=== PATIENT | male | born 1940 | race African-American/Black ===

== ENCOUNTER 2018-04-07 06:44 | Observation (INO) | payer OTHER ==
[~2018-04-07] VITALS: Ht 190.5 cm; Wt 72.4 kg
--- NOTE | ~2018-04-07 | P ---
[facility] [place] [address] PROCEDURE REPORT Name: GELY PRINGLE Room #: 201-P [facility] M.R.#: [id number] Admission: 04/07/18 Attend Phys: Aneesh Prince MD Discharge: Date of : 42 Report #: [id number] THIS REPORT FOR: //name// CC: FRANCES COURTNEY FAM unknown Aneesh Prince PREOPERATIVE DIAGNOSIS: Nonischemic cardiomyopathy. POSTOPERATIVE DIAGNOSIS: Nonischemic cardiomyopathy. PROCEDURES PERFORMED: ICD implantation, CPT code 07672. HISTORY: The patient is a 77-year-old with a history of a nonischemic cardiomyopathy, [place] [employer] functional class 2-3 heart failure symptoms and an EF of less than 35%, who has been on optimal medical therapy for over 3 months and is here for ICD implantation for primary prevention of sudden cardiac . ANESTHESIA: The patient underwent MAC anesthesia, with no anesthesia-related complications. DESCRIPTION OF PROCEDURE: The patient underwent informed consent. We discussed the details of the procedure, including the risk, which include but not limited to bleeding, infection, vascular damage, cardiac perforation and pneumothorax. He understood these risks and is willing to proceed. The patient was brought to the EP laboratory in fasting and sedated state and prepped and draped in a sterile fashion. He underwent a venogram, showing patency of the left axillary vein and received Ancef for antibiotic prophylaxis. Next, I injected lidocaine below the level of left clavicle. Incision was made and a pocket was created over the prepectoral fascia and then access was obtained twice through the left axillary vein using the extrathoracic approach. A second venogram was required to localize the vein. Next, under fluoroscopy, lead was positioned into the right ventricle and right atrial appendage. Of note, I did have difficulty positioning the RV lead. It would continue to take a very posterior location. I had a difficult time getting it to the apex and I think that maybe his heart was very rotated. Therefore, I positioned the lead very anteriorly in an FUNES projection and the lead appeared to be along the mid anterior ventricular septum. There was adequate pacing and sensing thresholds. Atrial lead was positioned to the right atrial appendage with no issues. The leads were sutured to the prepectoral fascia and then connected to the device. The pocket was irrigated with vancomycin and then the pocket was closed in 2 layers using 2-0 for the deep layer and 3-0 for the middle layer. Surgical glue was placed to the outer skin [address] [id number] PROCEDURE REPORT Name: GELY PRINGLE Room #: 201-P [facility] M.R.#: [id number] Admission: 04/07/18 Attend Phys: Aneesh Prince MD Discharge: Date of : 42 Report #: [id number] layer. The patient awoke neurologically and hemodynamically intact. No complications and no significant bleeding. The implanted device is [employer] model # [id number], serial #[id number]. The atrial lead is a [employer] model #2088TC, 52 cm, serial # [id number] and the RV lead is a [employer] model #7122Q, 65 cm, serial # [id number]. The atrial lead demonstrated a P-wave of greater than 5 millivolts, pacing impedance of 400 ohms and a pacing threshold of 0.5 at 0.5 milliseconds. The RV lead demonstrated R-wave of 11.7 millivolts, pacing impedance of 440 ohms and pacing threshold 0.5 volts at 0.5 milliseconds. The device was programmed to DDDR 60-130 mode. The VT zone was set at 180-220 beats per minute with 3 rounds of bursts, followed by 3 rounds of ramp, followed by max output shocks. The VF zone was set at greater than 220 beats per minute with ATP while charging, followed by max output shocks. CONCLUSIONS: 1. Successful dual-chamber ICD implantation. 2. Satisfactory atrial and ventricular pacing and sensing thresholds. By: [id number] Aneesh Prince MD /nt
--- NOTE | ~2018-04-07 | D ---
[facility] [address] [place] [address] DISCHARGE SUMMARY Name: GELY PRINGLE Room #: 201-P [facility] M.R.#: [id number] Admission: 04/07/18 Attend Phys: Aneesh Prince MD Discharge: Date of : 42 Report #: [id number] THIS REPORT FOR: //name// CC: FAM unknown ROZ FRANCES Prince DISCHARGE DIAGNOSIS: Nonischemic cardiomyopathy. PROCEDURES PERFORMED: Dual chamber [employer] ICD implantation. HISTORY OF PRESENT ILLNESS: The patient is a 77-year-old with history of nonischemic cardiomyopathy, has been on optimal medical therapy and was here for ICD implantation for primary prevention of sudden cardiac . He underwent successful ICD implantation without any issues. HOSPITAL COURSE: The patient was monitored overnight, he did well. He denied any chest pain, shortness of breath, PND, orthopnea, presyncope or syncope. He denied fevers or chills. PHYSICAL EXAMINATION: HEART: Regular rate and rhythm. LUNGS: Clear to auscultation bilaterally. ABDOMEN: Soft, nontender. EXTREMITIES: No clubbing, cyanosis or edema. His incision was healing nicely with no bruising or hematoma. His telemetry revealed sinus rhythm. His device interrogation showed normal device function. His chest x-ray showed stable lead position with no pneumothorax. As such, he was deemed stable for discharge home. 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 By: [id number] Aneesh Prince MD /nt
[2018-04-07 07:15] VITALS: BP 145/79
[2018-04-07] MEDS ORDERED: NAMENDA 10 MG T10 MG PO (07:32)
[2018-04-07] MEDS ORDERED: LISINOPRIL10 MG PO (07:32)
[2018-04-07] MEDS ORDERED: HYDROCHLOROTH12.5 M1 PO (07:33)
[2018-04-07] MEDS ORDERED: TOPROL XL25 MG PO (07:33)
[2018-04-07] MEDS ORDERED: ZOCOR20 MG PO (07:33)
[2018-04-07] MEDS ORDERED: VITAMIN D2000 UNIT PO (07:34)
[2018-04-07] MEDS ORDERED: CARDURA4 MG PO (07:34)
[2018-04-07] MEDS ORDERED: ASPIR 8181 MG PO (07:35)
[2018-04-07 07:39] LABS: ABSOLUTE NEUTROPHILS 1.8 thou/uL (1.4-8.2); BASOPHILS 0.5 % (0.0-2.0); EOSINOPHILS 1.7 % (0.0-3.0); HEMATOCRIT 39.7 % (42.0-52.0); HEMOGLOBIN 13.2 gm/dL (14.0-18.0); LYMPHOCYTES 39.8 % (24.0-44.0); MCH 31.1 pg (26.0-34.0); MCHC 33.3 g/dL (28.0-37.0); MCV 93.5 fL (80.0-100.0); MONOCYTES 11.6 % (1.0-8.0); PLATELET COUNT 227 thou/uL (150-400); POLYS 46.4 % (36.0-66.0); RBC 4.25 mil/uL (4.50-6.00); RDW 14.1 % (10.5-14.5); WBC 3.9 thou/uL (4.0-11.0)
[2018-04-07 07:42] LABS: CALCIUM 9.2 mg/dL (8.5-10.1); CREATININE 1.1 mg/dL (0.7-1.3); POTASSIUM 3.6 mmol/L (3.5-5.1)
[2018-04-07 07:43] LABS: APTT 25.9 Seconds (24.5-32.8); INR 1.1
[2018-04-07 07:48] LABS: ALBUMIN 3.6 g/dL (3.4-5.0); TOTAL BILIRUBIN 0.8 mg/dL (<0.1-1.0); TOTAL PROTEIN 7.6 g/dL (6.4-8.2)
[2018-04-07 13:11] VITALS: BP 125/72
[2018-04-07 16:32] VITALS: BP 118/54
--- NOTE | 2018-04-07 18:26 | NUR ---
PT CONFUSED THIS EVENING, HAS A HX OF DEMENTIA, WAS AOX4 EARLIER, STATES HE GETS LIKE THIS AT HOME, KEEPS PICKING AT IMMOBILIZER AND TRYING TO TAKE IT OFF. EXPLAINED TO HIM AGAIN THAT HE NEEDS IT AND REAPPLIED. TOLD TO CALL OUT IF HE STARTS MESSING WITH IT AGAIN
[2018-04-07 21:56] VITALS: BP 123/71
[2018-04-08 00:53] VITALS: BP 116/62
--- NOTE | 2018-04-08 02:38 | NUR ---
PATIENT IS ORIENTED TO SELF AND BIRTHDATE, DISORIENTED TO PLACE, DATE AND SITUATION. REORIENTATION DONE. DENIES ANY PAIN. SINUS ARRYTHMIA, PACS, PVCS AND A PACED ON THE MONITOR. LEFT CHEST ICD SITE C/D/I. LUNG SOUNDS CLEAR, ON ROOM AIR. PATIENT WITH EPISODE OF TAKING OFF IMMOBILIZER, PLACED BACK AND REORIENTATION DONE, PATIENT REINSTRUCTED NOT TO USE THE LEFT ARM TO PUSH OR PULL. IV ON THE LEFT AC PULLED OUT BY PATIENT. ON FALL PRECAUTION. BED ALARM ON. AT BEDSIDE. FF UP POC.
[2018-04-08 03:49] VITALS: BP 129/71
[2018-04-08 07:10] VITALS: BP 140/79
[2018-04-08 09:33] VITALS: BP 129/71
--- NOTE | 2018-04-08 09:38 | NUR ---
Received consult for diet education. Pt being discharged today. ICD implant, nonischemic cardiomyopathy. States many people have talked to him about importance of diet and had no further questions. Good spirits and ready to go home.
--- NOTE | 2018-04-08 09:48 | NUR ---
ASSUMED PATIENT CARE THIS AM. PATIENT LYING IN BED, A&O. ROOM AIR. AT BEDSIDE. LEFT CHEST SURGICAL SITE, C/D/I. NO COMPLAINTS STATED. PLAN TO DISCHARGE HOME NO NEEDS, FOLLOW UP WITH CARDIOLOGY. NO IV ACCESS SINCE ASSUMED CARE THIS AM.
== END 2018-04-08 10:25 | disposition home or self-care (01) ==
LOC: CATH 06:44 → 2N 11:00 → CATH 13:30 → ENTRNSPT 04-08 10:00 → EDTRNSPTSTS 04-08 10:03 → 2N 04-08 10:25
PROVIDERS: ADMIT Internal Medicine Cardiovascular Disease
DX: I42.8 Other cardiomyopathies (principal); I10 Essential (primary) hypertension; E78.5 Hyperlipidemia, unspecified; F32.9 Major depressive disorder, single episode, unspecified; F41.9 Anxiety disorder, unspecified